=== PATIENT | male | born 1950 | race Caucasian/White ===

== ENCOUNTER 2022-12-31 09:01 | Inpatient (IN) | payer OTHER, MEDICARE, SELFPAY ==
[2022-12-31] VITALS (27 sets, daily range): BP systolic 121–183; BP diastolic 73–102; PULSE 64–93; RESP 14–20; TEMP 36.2–36.8; O2SAT 90–99; BMI 13.9
--- NOTE | 2022-12-31 09:30 | CRLHL7_ITS ---
For Patients: As a result of the Century Cures Act, medical imaging exams and procedure reports are released immediately into your electronic medical record. You may view this report before your referring provider. If you have questions, please contact your health care provider. INDICATION: Diffuse abdominal pain. COMPARISON: CT abdomen and pelvis March 12, 2022; CT chest, abdomen and pelvis March 09, 2022. TECHNIQUE: CT abdomen and pelvis with intravenous contrast; coronal and sagittal reformats. FINDINGS: Distended small bowel with what appears to be mechanical small bowel obstruction somewhere in the distal ileum. Swirling of the mesentery indicating volvulus. No evidence of pneumatosis or pneumoperitoneum. Colon is decompressed. Liver, spleen and pancreas are unremarkable. Gallbladder is unremarkable. No adrenal pathology. Kidneys are unremarkable. No retroperitoneal lymphadenopathy. Normal appendix. Evidence of small amount of abdominal and pelvic ascites. Diverticulosis sigmoid colon without any CT evidence of diverticulitis or abscess. The lung bases are clear. IMPRESSION: 1. Mechanical small bowel obstruction transition zone somewhere in the distal ileum; pattern is highly suggestive of volvulus with a swirling of the mesentery. 2. No pneumoperitoneum or pneumatosis. 3. Small amount of abdominal and pelvic ascites. 4. All these findings are relatively new when compared to the previous study March 2022. Please note that all CT scans at this facility use dose modulation, iterative reconstruction, and/or weight-based dosing when appropriate to reduce radiation dose to as low as reasonably achievable. Dictated by Mami Evans MD @ 12/31/2022 11:35:46 AM (Electronically Signed)
[2022-12-31 09:49] LABS: Lactate* 2.1 mmol/L (0.5-1.9)
--- NOTE | 2022-12-31 09:51 | ED_ITS ---
HPI - Abdominal Pain General Chief Complaint: Abdominal Pain Stated Complaint: food poisoning Time Seen by Provider: 12/31/22 09:30 Source: patient Mode of arrival: ambulatory Limitations: no limitations History of Present Illness HPI narrative: 72-year-old male coming in today complaining of diffuse abdominal pain start in the middle of the night. The pain is constant. Nothing makes it better or worse. Last bowel movement was a small 1 this morning. He states he has not been passing a lot of gas rectally but has been belching quite a lot during the night and morning. He denies fevers or chills. He has had a small episode of vomiting and does feel nauseated. No blood in his vomitus. No blood in his stool. He denies any abdominal surgery in the past. He denies difficulty urinating. He denies increased urgency frequency or dysuria. No blood in his urine. Pain is not localized. Past medical history significant for coronary artery disease status post bypass. Related Data Home Medications Medication Instructions Recorded Confirmed atenolol 50 mg tablet 25 mg PO DAILY 12/31/22 12/31/22 atorvastatin 40 mg tablet 40 mg PO DAILY 12/31/22 12/31/22 clopidogrel 75 mg tablet 75 mg PO QAM 12/31/22 12/31/22 metoprolol tartrate 25 mg tablet 12.5 mg PO BID 12/31/22 12/31/22 nitroglycerin 0.4 mg sublingual mg sublingual 12/31/22 tablet Allergies Allergy/AdvReac Type Severity Reaction Status Date / Time Sulfa (Sulfonamide Allergy Mild Verified 12/31/22 09:18 Antibiotics) Review of Systems Status of ROS Reports: 10 or more systems reviewed and unremarkable except as noted in History and below Exam Narrative: Exam Narrative: Well-nourished well-developed patient who appears uncomfortable. Alert and oriented. Answers questions appropriately. Mood and affect are appropriate. Thoughts are goal oriented and rational. No tangential or magical thinking noted. Patient speaks in full sentences without needing to catch his breath. HEENT: Normocephalic atraumatic. Pupils are equally round reactive to light. Extraocular muscles are intact. Conjunctivae are moist without any icterus noted. Moist mucous membranes. Posterior pharynx is normal. Neck is soft without any lymphadenopathy or thyromegaly. No masses are appreciated. Cardiovascular: Heart is regular rate and rhythm S1 and S2 are present without any murmurs. Lungs: Clear to auscultation bilaterally no wheezes rhonchi or rales are appreciated. Patient takes deep breaths without any discomfort. Abdomen: Slightly firm but nondistended. He has diffuse tenderness throughout the entire abdomen. He has hypoactive bowel sounds. Extremities: Bilateral lower extremities are without edema. Normal DP and PT pulses. Skin: Well perfused without any obvious rashes. Const: Vital Signs, click to edit/add: Vital Signs - 24 hr 12/31/22 09:15 12/31/22 10:10 12/31/22 11:10 Temperature 97.2 F L Pulse Rate 64 Pulse Rate [Right Pulse Oximeter] 72 Respiratory Rate 20 Blood Pressure Blood Pressure [Le ft Upper Arm] 142/96 H Pulse Oximetry 98 98 97 Oxygen Delivery Me thod Room Air 12/31/22 11:28 12/31/22 11:30 12/31/22 11:32 Temperature Pulse Rate 66 74 66 Pulse Rate [Right Pulse Oximeter] Respiratory Rate Blood Pressure 179/100 H 183/102 H Blood Pressure [Le ft Upper Arm] Pulse Oximetry 98 99 97 Oxygen Delivery Me thod 12/31/22 12:00 12/31/22 12:02 Temperature Pulse Rate 68 73 Pulse Rate [Right Pulse Oximeter] Respiratory Rate Blood Pressure 163/94 H Blood Pressure [Le ft Upper Arm] Pulse Oximetry 96 95 Oxygen Delivery Me thod Course Course Hospital Course: IV was established and labs were drawn. Patient received morphine followed by Dilaudid x2 with continued pain. Labs showing elevated white cell count of 14.5 with 91% neutrophils. Electrolytes unremarkable. Lactate slightly elevated at 2.1. Normal CRP. Urinalysis showing 2+ ketones and trace blood. Abdominal CT scan showing a mechanical small bowel obstruction suggestive of volvulus. Dr. Quinones aware of patient. Patient will be taken to the OR for further management. Vital Signs Vital signs: Initial Vital Signs Temperature 97.2 F L 12/31/22 09:15 Temperature Source Temporal Artery Scan 12/31/22 09:15 Pulse Rate 72 12/31/22 09:15 Pulse Rhythm Regular 12/31/22 09:15 Respiratory Rate 20 12/31/22 09:15 Blood Pressure 142/96 H 12/31/22 09:15 Blood Pressure Mean 111 H 12/31/22 09:15 Blood Pressure Position Sitting 12/31/22 09:15 Pulse Oximetry 98 12/31/22 09:15 Oxygen Delivery Method Room Air 12/31/22 09:15 Vital Signs Temperature 97.2 F L 12/31/22 09:15 Pulse Rate 72 12/31/22 09:15 Respiratory Rate 20 12/31/22 09:15 Blood Pressure 142/96 H 12/31/22 09:15 Pulse Oximetry 98 12/31/22 09:15 Oxygen Delivery Method Room Air 12/31/22 09:15 Temperature 97.2 F L 12/31/22 09:15 Pulse Rate 73 12/31/22 12:02 Respiratory Rate 20 12/31/22 09:15 Blood Pressure 163/94 H 12/31/22 12:02 Pulse Oximetry 95 12/31/22 12:02 Oxygen Delivery Method Room Air 12/31/22 09:15 MDM - Abdominal Pain MDM Narrative Medical decision making narrative: Mechanical small-bowel obstruction. Patient to be taken to the OR. Medical Records Attestation: I reviewed the patient's medical records. Lab Data Attestation: I reviewed the patient's lab results. Labs: Lab Results 12/31/22 12/31/22 Range/Units 09:30 11:20 WBC 14.50 H (4.50-11.00) K/uL RBC 6.02 H (4.30-5.90) m/uL Hgb 16.9 (13.5-17.5) gm/dL Hct 52.8 (37.0-53.0) % MCV 88 (80-100) fL MCH 28 (26-34) pg MCHC 32 (32-36) gm/dL RDW Coeff of Johann 13.3 (11.5-15.5) % Plt Count 216 (140-440) K/uL Neut % (Auto) 91.3 H (42.0-72.0) % Lymph % (Auto) 6.4 L (20-44) % [place] % (Auto) 1.9 (0.0-11.0) % Eos % (Auto) 0.0 (0.0-7.0) % Baso % (Auto) 0.2 (0.0-3.0) % Neut # (Auto) 13.20 H (1.7-7.0) K/uL Lymph # (Auto) 0.90 (0.90-2.90) K/uL [place] # (Auto) 0.30 (0.00-0.90) K/UL Eos # (Auto) 0.00 (0.00-0.50) K/uL Baso # (Auto) 0.00 (0.00-0.30) K/uL Abs Immat Gran (auto) 0.00 (0.00-0.30) K/uL Imm/Tot Granulo (auto) 0.2 % ESR < 2 L (2-15) mm/hr Sodium 137 (135-149) mmol/L Potassium 4.2 (3.6-5.1) mmol/L Chloride 102 (96-114) mmol/L Carbon Dioxide 24 (20-32) mmol/L BUN 26 (7-30) mg/dL Creatinine 1.1 (0.5-1.5) mg/dL Estimated Creat Clear 36.74 Estimated GFR 70 ml/min Glucose 167 H (60-115) mg/dL Lactate 2.1 H (0.5-1.9) mmol/L Calcium 9.4 (8.4-10.6) mg/dL Total Bilirubin 1.1 (0.1-1.5) mg/dL Direct Bilirubin 0.1 (0.0-0.5) mg/dL AST 30 (12-35) U/L ALT 37 (4-50) U/L Alkaline Phosphatase 82 (40-150) U/L C-Reactive Protein < 0.5 L (0.5-1.0) mg/dL Total Protein 7.9 (6.0-8.3) g/dL Albumin 4.7 (3.3-5.0) g/dL Lipase 56 (23-300) U/L Urine Color Yellow (Yellow) Urine Appearance Clear (Clear) Urine pH 7.5 (5.0-8.5) Ur Specific [place] 1.015 (1.000-1.030) Urine Protein Negative (Negative) Urine Glucose (UA) Negative (Negative) Urine Ketones 2+ A (Negative) Urine Blood Trace-intact A (Negative) Urine Nitrite Negative (Negative) Urine Bilirubin Negative (Negative) Urine Urobilinogen 0.2 (0.2-1.0) Ur Leukocyte Esterase Negative (Negative) Urine RBC 0-2 (0-2) Urine WBC 0-2 (0-5) Ur Squamous Epith Cells None (None-Few) Urine Bacteria None (None) Imaging Data CT scan - abdomen: Attestation: I have reviewed the pertinent imaging results. Radiologist's impression: COMPARISON: CT abdomen and pelvis March 12, 2022; CT chest, abdomen and pelvis March 09, 2022. TECHNIQUE: CT abdomen and pelvis with intravenous contrast; coronal and sagittal reformats. FINDINGS: Distended small bowel with what appears to be mechanical small bowel obstruction somewhere in the distal ileum. Swirling of the mesentery indicating volvulus. No evidence of pneumatosis or pneumoperitoneum. Colon is decompressed. Liver, spleen and pancreas are unremarkable. Gallbladder is unremarkable. No adrenal pathology. Kidneys are unremarkable. No retroperitoneal lymphadenopathy. Normal appendix. Evidence of small amount of abdominal and pelvic ascites. Diverticulosis sigmoid colon without any CT evidence of diverticulitis or abscess. The lung bases are clear. IMPRESSION: 1. Mechanical small bowel obstruction transition zone somewhere in the distal ileum; pattern is highly suggestive of volvulus with a swirling of the mesentery. 2. No pneumoperitoneum or pneumatosis. 3. Small amount of abdominal and pelvic ascites. 4. All these findings are relatively new when compared to the previous study March 2022. Discharge Plan Discharge Clinical Impression: Small bowel obstruction Patient Disposition: XFER to OR Condition: Unchanged Follow Up/Referrals: Provider,Not a Local [Primary Care Provider] -
[2022-12-31 09:53] LABS: Basophils Percent Auto 0.2 % (0.0-3.0); Hematocrit 52.8 % (37.0-53.0); Hemoglobin* 16.9 gm/dL (13.5-17.5); Immature Granulocytes Pct Auto 0.2 %; Lymphocytes Percent Auto 6.4 % (20-44); Mean Corpuscular HGB Conc 32 gm/dL (32-36); Mean Corpuscular Hemoglobin 28 pg (26-34); Mean Corpuscular Volume 88 fL (80-100); Monocytes Percent Auto 1.9 % (0.0-11.0); Neutrophils Percent Auto 91.3 % (42.0-72.0); Platelet Count* 216 K/uL (140-440); RDW Coefficient of Variation % 13.3 % (11.5-15.5); Red Blood Count 6.02 m/uL (4.30-5.90)
[2022-12-31 09:57] LABS: Slide Review Reflex No
[2022-12-31] MEDS: 0.9 % SODIUM CHLORIDE 1000 ml 1,000 ML IV (10:03)
[2022-12-31 10:04] LABS: Chloride* 102 mmol/L (96-114); Sodium* 137 mmol/L (135-149)
[2022-12-31 10:05] LABS: Potassium* 4.2 mmol/L (3.6-5.1)
[2022-12-31 10:06] LABS: Albumin* 4.7 g/dL (3.3-5.0)
[2022-12-31 10:07] LABS: Creatinine* 1.1 mg/dL (0.5-1.5); Est. Creatinine Clearance* 36.74; Estimated Glomerular Filt Rate 70 ml/min
[2022-12-31 10:08] LABS: Blood Urea Nitrogen* 26 mg/dL (7-30); Calcium* 9.4 mg/dL (8.4-10.6); Carbon Dioxide* 24 mmol/L (20-32); Glucose* 167 mg/dL (60-115)
[2022-12-31 10:09] LABS: Alanine Aminotransferase* 37 U/L (4-50); Alkaline Phosphatase* 82 U/L (40-150); Aspartate Amino Transferase* 30 U/L (12-35); Bilirubin Direct* 0.1 mg/dL (0.0-0.5); Bilirubin Total* 1.1 mg/dL (0.1-1.5); Lipase* 56 U/L (23-300); Total Protein* 7.9 g/dL (6.0-8.3)
[2022-12-31] MEDS: MORPHINE 2 MG/ML inj IVP ×2 (10:09→12:05)
[2022-12-31 10:11] LABS: C Reactive Protein* < 0.5 mg/dL (0.5-1.0)
[2022-12-31] MEDS: ONDANSETRON 2 MG/ML inj 4 MG IVP (10:24)
[2022-12-31 10:33] LABS: Erythrocyte SedimentationRate* < 2 mm/hr (2-15)
[2022-12-31] MEDS: HYDROmorphone 0.5 mg/0.5 ml inj IVP ×2 (10:35→11:55)
[2022-12-31 11:32] LABS: Appearance Urine Clear (Clear); Bilirubin Urine Negative (Negative); Blood Urine Trace-intact (Negative); Color Urine Yellow (Yellow); Glucose Urine Negative (Negative); Ketones Urine 2+ (Negative); Leukocyte Esterase Urine Negative (Negative); Nitrite Urine Negative (Negative); Protein Urine Negative (Negative); Specific Gravity Urine 1.015 (1.000-1.030); Urobilinogen Urine 0.2 (0.2-1.0); pH Urine 7.5 (5.0-8.5)
[2022-12-31 11:50] LABS: RBC Urine 0-2 (0-2); WBC Urine 0-2 (0-5)
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
[2022-12-31] MEDS: LACTATED RINGERS 1000 ML 1,000 ML 100 ML IV ×4 (12:53→23:39)
[2022-12-31] MEDS: PIPERACILLIN/TAZOBACTAM 3.375 GM INJ IVPB (12:55)
--- NOTE | 2022-12-31 13:03 | W.PM.NB ---
Nerve Block Nerve Block Time Seen by Provider: 13:00 Date Seen: 12/31/22 Type of block requested by surgeon for post-operative analgesia: TAP Side: bilateral Time out performed: Yes Verification of patient name: Yes Verification of date of : Yes Site marking: site marked Name of person performing procedure: George Continuous monitoring Was continuous monitoring of O2 sat, B/P, cardiac specialist, recorded every 15 minutes?: Yes Procedure Checklist: sterile prep, needles and gloves Ultrasound guided. Images saved: Yes Medications given in 5ml increments after negative aspiration: Marcaine %: 0.25 mL: 30 Needle gauge: 20 and Exparel mL: 10 Patient tolerated procedure well: Yes Additional comments: Needle noted adjacent to nerve Block Charges Block Charge (with Pro Fee): TAP Bilateral Use of Ultrasound Machine for Block: Yes- US Guidance/pain block
--- NOTE | 2022-12-31 13:03 | PM.IMHP1 ---
Hospitalist- H&P: HPI History of Present Illness Date Seen: 12/31/22 Chief complaint: food poisoning Narrative: Darius Sharp is a 72 year old male admitted through the emergency department with onset of abdominal pain during the night last night. Patient reports he was feeling fine but woke during the night with abdominal pain. He then had vomiting as well. His bowels have been working normally but he just had a very small bowel movement this morning. He has not had any blood in his emesis or blood in his stool. No previous abdominal surgery. Previous bowel obstruction. He does have a history of adenomatous colon polyps and has had colonoscopy as recently as 2 years ago with a recommended repeat colonoscopy in 7 years. In the emergency department CT scan obtained did show small-bowel obstruction with transition point and concern about internal hernia. He is seen in consultation with General surgery with a plan to go to the operating room for exploratory laparotomy. Patient has significant history for cardiac disease. 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 He collapsed suddenly while bicycling with friends and CPR was initiated immediately. He was found to be in ventricular fibrillation and shocked x1. Coronary angiogram showed minimal disease in the LM, severe proximal LAD disease with severe in-stent restenosis after the proximal D2 branch, diffuse moderate in-stent restenosis with a subtotal severe lesion in the proximal LCx, felt to be the culprit lesion, and a severe proximal lesion in the RCA. He underwent emergent PTCA to the prox LCx lesion, followed by CABG x 4 (PIERCE to LAD, SVG to distal RCA, SVG to OM, and SVG to diagonal) on 03/22/2022. ?Overall, his recovery was uneventful and he was discharged to home on 03/27/2022. ? ? The patient was readmitted from 03/30- after ECG at PCP clinic visit showed sinus tachycardia (asymptomatic). ?He was evaluated further to rule out hemorrhage, tamponade, sepsis, pulmonary embolism, etc. ?Chest CT was negative for PE, LVEF was normal and minimal pericardial effusion noted on echocardiogram and no concern for pericarditis. Lab work was reassuring. The decision was made to initiate Metoprolol 12.5 mg PO BID. Darius has done well with that. Per home monitoring, his HR is averaging 65 bpm, BP 124/79 mmHg, and weight 158 lbs. ? The patient diligently follows a heart healthy nutrition plan, noting that his is a vegetarian. He completed Cardiac Rehab in May 2022 and has gone back to his prior exercise routine. He plays competitive table tennis 3-4 x/week and rides his stationary bike 30-45 minutes most of the other days. He tolerates exercise and exertional activities without cardiac sx or limitations. Patient reports that since June he has continued to feel well. He has no unusual dyspnea with exertion or chest pain. He is on aspirin and clopidogrel. No other anticoagulation. He has had no problems with anesthesia, bleeding or thrombophilia. Review of Systems Narrative: Prior to last night he was feeling well. 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 He does not smoke. He drinks alcohol 1-2 times per week. No recreational drug use. He lives with his . He is very active. Healthcare power of senior trial attorney is his or his son Chano. Code status is full Smoking Status: Current some day smoker Meds Home Medications and Allergies Home Medications Medication Instructions Recorded Confirmed Type atorvastatin 40 mg tablet 40 mg PO DAILY 12/31/22 12/31/22 History clopidogrel 75 mg tablet 75 mg PO QAM 12/31/22 12/31/22 History metoprolol tartrate 25 mg tablet 12.5 mg PO BID 12/31/22 12/31/22 History nitroglycerin 0.4 mg sublingual mg sublingual 12/31/22 History tablet Allergies Allergy/AdvReac Type Severity Reaction Status Date / Time Sulfa (Sulfonamide Allergy Mild Verified 12/31/22 09:18 Antibiotics) Exam Narrative: Exam Narrative: He is alert and appears in moderate amount of discomfort. He describes this is abdominal pain and he is having a hard time getting comfortable. He feels an urge to void or to have a bowel movement but is unable to. Eyes normal. Oropharynx normal. Neck is supple without mass or adenopathy. Respirations are clear to auscultation. Cardiovascular: S1, S2, regular rate and rhythm. No murmur gallop or rub. Abdomen: Bowel sounds active. Abdomen is distended with diffuse tenderness most prominent in the lower abdomen just to the left of midline. External genitalia normal. Extremities normal with intact pulses and sensation. No edema. Const: Vital Signs, click to edit/add: Vital Signs - 24 hr 12/31/22 09:15 12/31/22 10:10 12/31/22 11:10 Temperature 97.2 F L Pulse Rate 64 Pulse Rate [Right Pulse Oximeter] 72 Respiratory Rate 20 Blood Pressure Blood Pressure [Le ft Upper Arm] 142/96 H Pulse Oximetry 98 98 97 Oxygen Delivery Me thod Room Air 12/31/22 11:28 12/31/22 11:30 12/31/22 11:32 Temperature Pulse Rate 66 74 66 Pulse Rate [Right Pulse Oximeter] Respiratory Rate Blood Pressure 179/100 H 183/102 H Blood Pressure [Le ft Upper Arm] Pulse Oximetry 98 99 97 Oxygen Delivery Me thod 12/31/22 12:00 12/31/22 12:02 Temperature Pulse Rate 68 73 Pulse Rate [Right Pulse Oximeter] Respiratory Rate Blood Pressure 163/94 H Blood Pressure [Le ft Upper Arm] Pulse Oximetry 96 95 Oxygen Delivery Me thod Documenting provider has reviewed patient's vital signs: yes Hospitalist - H&P: Result Labs Labs: Short CBC 12/31/22 Range/Units 09:30 WBC 14.50 H (4.50-11.00) K/uL Hgb 16.9 (13.5-17.5) gm/dL Hct 52.8 (37.0-53.0) % Plt Count 216 (140-440) K/uL BMP 12/31/22 09:30 Sodium 137 Potassium 4.2 Chloride 102 Carbon Dioxide 24 BUN 26 Creatinine 1.1 Glucose 167 H Calcium 9.4 Liver Function 12/31/22 Range/Units 09:30 Total Bilirubin 1.1 (0.1-1.5) mg/dL Direct Bilirubin 0.1 (0.0-0.5) mg/dL AST 30 (12-35) U/L ALT 37 (4-50) U/L Alkaline Phosphatase 82 (40-150) U/L Albumin 4.7 (3.3-5.0) g/dL Urine 12/31/22 Range/Units 11:20 Urine Color Yellow (Yellow) Urine Appearance Clear (Clear) Urine pH 7.5 (5.0-8.5) Ur Specific [place] 1.015 (1.000-1.030) Urine Protein Negative (Negative) Urine Glucose (UA) Negative (Negative) Imaging CT scan - abdomen: Radiologist's impression: INDICATION: Diffuse abdominal pain. COMPARISON: CT abdomen and pelvis March 12, 2022; CT chest, abdomen and pelvis March 09, 2022. TECHNIQUE: CT abdomen and pelvis with intravenous contrast; coronal and sagittal reformats. FINDINGS: Distended small bowel with what appears to be mechanical small bowel obstruction somewhere in the distal ileum. Swirling of the mesentery indicating volvulus. No evidence of pneumatosis or pneumoperitoneum. Colon is decompressed. Liver, spleen and pancreas are unremarkable. Gallbladder is unremarkable. No adrenal pathology. Kidneys are unremarkable. No retroperitoneal lymphadenopathy. Normal appendix. Evidence of small amount of abdominal and pelvic ascites. Diverticulosis sigmoid colon without any CT evidence of diverticulitis or abscess. The lung bases are clear. IMPRESSION: 1. Mechanical small bowel obstruction transition zone somewhere in the distal ileum; pattern is highly suggestive of volvulus with a swirling of the mesentery. 2. No pneumoperitoneum or pneumatosis. 3. Small amount of abdominal and pelvic ascites. 4. All these findings are relatively new when compared to the previous study March 2022. Assessment and Plan Assessment and plan (1) Small bowel obstruction: Problem comment: Urgent surgery Status: Acute (2) Coronary artery disease: Problem comment: Four vessel CABG following cardiac arrest in March 2022. Asymptomatic heart disease since cardiac arrest Status: Acute (3) Antiplatelet or antithrombotic long-term use: Status: Acute (4) Stage 3 chronic kidney disease: Status: Acute Plan Patient is admitted for urgent surgery. Follow-up after surgery to monitor for medical complications, particularly cardiovascular disease. Total time spent today is 75 minutes, 45 minutes in coordination of care discussing with patient , patient's and other providers ongoing plan of care for surgery and recovery
--- NOTE | 2022-12-31 14:51 | W.ANESCHARGE ---
Anesthesia Charges Start Date/Time Anesthesia Start Date: 12/31/22 Anesthesia Start Time: 12:53 Stop Date/Time Anesthesia Stop Date: 12/31/22 Anesthesia Stop Time: 14:40 Summary Emergency: MDA Extremes of Age - Over 70 or under 1: ELECTROPHYSIOLOGIST
--- NOTE | 2022-12-31 15:22 | P.GSOP_ITS ---
Operative Note Pre-op diagnosis: Small bowel obstruction with concern for internal hernia or volvulus Post-op diagnosis: Same Type of Procedure: Exploratory laparotomy and lysis of adhesions Indications: The patient is a 72-year-old male who presented to the emergency department with approximately 12 hours of severe abdominal pain. Workup revealed elevated white blood cell count and lactate. CT scan showed a small-bowel obstruction with concern for mesenteric volvulus versus internal hernia. I recommended exploratory laparotomy for risk of bowel ischemia and the patient agreed to p roceed. Procedure Description: After discussing the risks and benefits of the procedure, the patient signed informed consent.? The operative site was marked and the patient was brought to the operating room and placed on the operating table in supine position.? Care was taken to pad the patient's pressure points.?? The patient was then intubated by anesthesia.?? The operative site was then prepped and draped in the usual sterile fashion.? A time-out was then performed. In midline incision was made in the mid abdomen around the umbilicus. Disse ction was taken down into the subcutaneous tissue using cautery. The fascia was then incised and peritoneum entered. There was a moderate amount of clear fluid noted in the abdomen. This was suctioned. I began running the small bowel from the ligament Tre[place] distal. Approximately 100 cm distal, there was an abrupt change in the small bowel. The small bowel and its mesentery appeared hemorrha gic. This continued 70 cm or so. There was an area on the small bowel where was obvious that there had been it adhesion that had caused the small bowel to obstruct, however this had freed itself while running the bowel. This appeared to be an interloop adhesion. There was a jelly like substance noted here which appeared to be more consistent with fibrinous material, I did send this for pathology given that the patient had no prior history of surgery. The remainder of the small bowel was normal. No masses were palpable within the small bowel. I then returned the small bowel to the abdomen to allow it time to ensure adequate perfusion. In the meantime I suctioned out several 100 mL of ascites. I then examined the peritoneum visually as well as with my hand and did not discover any peritoneal studding. The liver was palpated and felt normal. No masses were felt in the abdomen. I re-examined the bowel which had been twisted/strangulated. There were no frankly ischemic areas, however this area of bowel was quite reddened and hemorrhagic, likely from reperfusion. I obtained a Doppler and examined this area of the bowel along the mesenteric border. It had excellent blood flow. I allowed the bowel to sit in the abdomen for approximately 10 more minutes and examined it 1 more time to ensure that continued to appear well perfused. The bowel was then replaced in the abdomen in its appropriate orientation. The fascia was then closed with looped 0 [place] in a running fashion. There was no spillage of bowel contents, however I did irrigate the subcutaneous space before closing. The skin was then closed with 3 0 Vicryl dermal and 4-0 Monocryl running subcuticular suture. Sterile dressings were applied. The patient had silk suture noted which was protruding from his skin at the site of his prior chest tube. Using a pickups, I was able to remove this. ? The patient was then woken and transported to the recovery area in stable condition. ? The patient tolerated the procedure well. Findings: 1. Likely internal hernia with volvulus and strangulation of the distal jejunum. 2. Bowel appeared perfused though hemorrhagic. Excellent Doppler signal along mesenteric border of the entire area of affected bowel. 3. Small amount of jelly-like substance noted in the area of the adhesion. This was sent to pathology. Anesthesia: GETA Surgeon: Yessica Quinones MD Estimated blood loss (mL): 10 Additional Specimen Information: Peritoneal tissue pathology Condition: stable Disposition: PACU
[2022-12-31] MEDS: METOPROLOL TARTRATE 25 MG TABLET 12.5 MG PO (20:09)
[2023-01-01] VITALS (7 sets, daily range): BP systolic 109–162; BP diastolic 63–91; PULSE 64–86; RESP 16–18; TEMP 36.6–37.3; O2SAT 95–97
--- NOTE | 2023-01-01 06:23 | PC.NURSE ---
-: pleasant and cooperative. SBA to BR to assist with IV pole. Compliant with NPO diet. Pt states pain is tolerable, declines need for pain medication. Bowel tones hypoactive. VSS. Dressing to abd CDI. ?
[2023-01-01 08:04] LABS: Basophils Percent Auto 0.1 % (0.0-3.0); Hematocrit 45.8 % (37.0-53.0); Hemoglobin* 14.7 gm/dL (13.5-17.5); Immature Granulocytes Pct Auto 0.1 %; Lymphocytes Percent Auto 7.7 % (20-44); Mean Corpuscular HGB Conc 32 gm/dL (32-36); Mean Corpuscular Hemoglobin 28 pg (26-34); Mean Corpuscular Volume 87 fL (80-100); Neutrophils Percent Auto 85.1 % (42.0-72.0); Platelet Count* 193 K/uL (140-440); RDW Coefficient of Variation % 13.9 % (11.5-15.5); Red Blood Count 5.24 m/uL (4.30-5.90); White Blood Count* 11.29 K/uL (4.50-11.00)
[2023-01-01 08:12] LABS: Slide Review Reflex No
[2023-01-01 08:37] LABS: Chloride* 106 mmol/L (96-114); Potassium* 4.6 mmol/L (3.6-5.1); Sodium* 136 mmol/L (135-149)
[2023-01-01 08:40] LABS: Blood Urea Nitrogen* 31 mg/dL (7-30); Carbon Dioxide* 25 mmol/L (20-32); Creatinine* 1.2 mg/dL (0.5-1.5); Est. Creatinine Clearance* 33.68; Estimated Glomerular Filt Rate 63 ml/min
[2023-01-01 08:41] LABS: Calcium* 8.2 mg/dL (8.4-10.6); Glucose* 106 mg/dL (60-115)
[2023-01-01] MEDS: LACTATED RINGERS 1000 ML 1,000 ML 100 ML IV ×2 (08:41→19:05)
[2023-01-01] MEDS: CLOPIDOGREL 75 MG TABLET PO (09:02)
[2023-01-01] MEDS: METOPROLOL TARTRATE 25 MG TABLET 12.5 MG PO ×2 (09:02→21:00)
--- NOTE | 2023-01-01 11:22 | PM.GSPN ---
Subjective Subjective Date Seen: 01/01/23 Interval history: Feeling significantly better today than preoperatively. He has been up walking. Has some pain with movement. Minimal to no pain at rest. Denies nausea. No flatus. Exam Narrative: Exam Narrative: General: No acute distress CV: Regular rate and rhythm Respiratory: Clear to auscultation bilaterally Abdomen: Mild distention. Dressing clean and dry. Minimally tender to palpation; appropriate for postop state Const: Vital Signs, click to edit/add: Vital Signs - 24 hr 12/31/22 11:28 12/31/22 11:30 12/31/22 11:32 Temperature Pulse Rate 66 74 66 Pulse Rate [Left P ulse Oximeter] Respiratory Rate Blood Pressure 179/100 H 183/102 H Blood Pressure [Le ft Arm] Pulse Oximetry 98 99 97 Oxygen Delivery Me thod 12/31/22 12:00 12/31/22 12:02 12/31/22 14:40 Temperature 97.1 F L Pulse Rate 68 73 89 Pulse Rate [Left P ulse Oximeter] Respiratory Rate 16 Blood Pressure 163/94 H 131/86 Blood Pressure [Le ft Arm] Pulse Oximetry 96 95 95 Oxygen Delivery Me od Room Air 12/31/22 14:45 12/31/22 14:50 12/31/22 14:55 Temperature Pulse Rate 93 90 82 Pulse Rate [Left P ulse Oximeter] Respiratory Rate 16 16 16 Blood Pressure 138/86 148/91 H 151/99 H Blood Pressure [Le ft Arm] Pulse Oximetry 95 95 94 [facility] Air Room Air Room Air 12/31/22 15:00 12/31/22 15:05 12/31/22 15:10 Temperature 97.5 F L Pulse Rate 86 75 85 Pulse Rate [Left P ulse Oximeter] Respiratory Rate 14 14 14 Blood Pressure 136/87 143/90 H 146/98 H Blood Pressure [Le ft Arm] Pulse Oximetry 94 94 95 Oxygen Delivery Me od Room Air Room Air Room Air 12/31/22 15:30 12/31/22 15:30 12/31/22 15:45 Temperature 97.5 F L 97.5 F L 97.4 F L Pulse Rate 77 Pulse Rate [Left P ulse Oximeter] 77 80 Respiratory Rate 14 14 14 Blood Pressure Blood Pressure [Le ft Arm] 121/80 123/75 Pulse Oximetry 95 90 Oxygen Delivery Me thod Room Air Room Air Room Air 12/31/22 15:45 12/31/22 16:00 12/31/22 16:15 Temperature 97.4 F L 97.4 F L 97.3 F L Pulse Rate Pulse Rate [Left P ulse Oximeter] 80 69 81 Respiratory Rate 14 14 14 Blood Pressure Blood Pressure [Le ft Arm] 123/75 130/80 129/84 Pulse Oximetry 90 90 90 Oxygen Delivery Me thod Room Air Room Air Room Air 12/31/22 16:30 12/31/22 17:00 12/31/22 17:30 Temperature 98.1 F 98.1 F 98.2 F Pulse Rate Pulse Rate [Left P ulse Oximeter] 87 86 76 Respiratory Rate 14 14 14 Blood Pressure Blood Pressure [Le ft Arm] 128/95 H 133/86 121/73 Pulse Oximetry 90 90 95 Oxygen Delivery Me thod Room Air Room Air Room Air 12/31/22 18:30 12/31/22 19:00 12/31/22 20:00 Temperature 98.2 F 97.8 F Pulse Rate Pulse Rate [Left P ulse Oximeter] 78 87 83 Respiratory Rate 14 16 16 Blood Pressure Blood Pressure [Le ft Arm] 134/79 131/78 136/93 H Pulse Oximetry 90 93 92 Oxygen Delivery Me thod Room Air Room Air Room Air 12/31/22 21:44 12/31/22 22:23 12/31/22 22:23 Temperature 98 F Pulse Rate 89 Pulse Rate [Left P ulse Oximeter] 80 80 Respiratory Rate 16 16 Blood Pressure Blood Pressure [Le ft Arm] 133/78 Pulse Oximetry 95 Oxygen Delivery Me thod Room Air 01/01/23 03:00 01/01/23 07:00 01/01/23 07:00 Temperature 98.4 F 99.2 F Pulse Rate 64 Pulse Rate [Left P ulse Oximeter] 68 77 Respiratory Rate 16 16 Blood Pressure Blood Pressure [Le ft Arm] 109/63 124/67 Pulse Oximetry 96 95 Oxygen Delivery Me thod Room Air Room Air 01/01/23 07:00 Temperature Pulse Rate Pulse Rate [Left P ulse Oximeter] Respiratory Rate 16 Blood Pressure Blood Pressure [Le ft Arm] Pulse Oximetry Oxygen Delivery Me thod Labs/Imaging Labs Labs: Hemoglobin 14 White blood cell count 11 from 14 Electrolytes within normal limits though BUN is up slightly to 31 from 23/11. Progress Note: A&P Assessment and plan (1) Coronary artery disease: Problem details: Four vessel CABG following cardiac arrest in March 2022. Asymptomatic heart disease since cardiac arrest Status: Acute (2) Stage 3 chronic kidney disease: Status: Acute (3) Antiplatelet or antithrombotic long-term use: Status: Acute (4) Volvulus: Status: Acute (5) S/P laparotomy with lysis of adhesions: Status: Acute Plan The patient is a 72-year-old male who is postop day 1 status post exploratory laparotomy and lysis of adhesions for small-bowel volvulus. Bowel appeared perfused though hemorrhagic in the OR. No ischemic areas noted. -patient is doing well overall however I expect a significant ileus. Sips with meds and lozenges/swabs only until passing flatus. -patient with robust urine output per report though BUN is up slightly. Will keep maintenance IV fluids at their current level unless urine output decreases. Recheck BUN tomorrow; patient may be 3rd spacing -discussed Lovenox prophylaxis. Patient is ambulating and wearing his SCDs at night. He is also on anticoagulation with Plavix and aspirin. I think adding heparin will likely increased bleeding risk. Will hold off on this point and follow hemoglobin for now. -no need for ongoing antibiotics. Encourage ambulation and IS.
--- NOTE | 2023-01-01 12:56 | PM.IMPN1 ---
Progress Note: A&P Assessment and plan (1) S/P laparotomy with lysis of adhesions: Problem details: Dr. Quinones, 01/01/2023. Postoperatively doing well Status: Acute (2) Coronary artery disease: Problem details: Four vessel CABG following cardiac arrest in March 2022. Asymptomatic heart disease since cardiac arrest Status: Acute (3) Stage 3 chronic kidney disease: Problem details: Stable Status: Acute (4) Antiplatelet or antithrombotic long-term use: Problem details: Resume antiplatelet therapy Status: Acute Plan Continue in hospital for postoperative management, awaiting return of bowel function, monitoring for complications of surgery or cardiovascular disease. Time Spent With Patient Total time spent: Total time spent today is 35 minutes, 25 minutes in coordination of care discussing with patient other providers ongoing evaluation management of postop small-bowel obstruction and lysis of adhesions Subjective Date Seen: 01/01/23 Interval history: 72-year-old male seen in followup of hospitalization for small-bowel obstruction. He was taken to the OR where he was found to have a probable internal hernia. This resolved without requiring small-bowel resection. There was some concern about ischemic bowel but Dr. Quinones felt the bowel was well perfused. Postoperatively he reports feeling much better. Despite his abdominal incision is pain is much improved. Otherwise reports feeling fine he has been up walking in the hallway. No shortness of breath or chest pain. He is not yet passing gas. Exam Narrative: Exam Narrative: He is alert and appears in no distress. Speech is normal. Eyes normal. Oropharynx normal. Respirations are clear to auscultation. Cardiovascular: S1, S2, regular rate and rhythm. No murmur gallop or rub. Abdomen: Bowel sounds are diminished but present. Abdomen is soft with relatively diffuse tenderness and guarding consistent with his postoperative status. No significant erythema or drainage from the bandaged wound. Extremities without edema. Const: Vital Signs, click to edit/add: Vital Signs - 24 hr 12/31/22 14:40 12/31/22 14:45 12/31/22 14:50 Temperature 97.1 F L Pulse Rate 89 93 90 Pulse Rate [Left P ulse Oximeter] Respiratory Rate 16 16 16 Blood Pressure 131/86 138/86 148/91 H Blood Pressure [Le ft Arm] Pulse Oximetry 95 95 95 Oxygen Delivery Me thod Room Air Room Air Room Air 12/31/22 14:55 12/31/22 15:00 12/31/22 15:05 Temperature Pulse Rate 82 86 75 Pulse Rate [Left P ulse Oximeter] Respiratory Rate 16 14 14 Blood Pressure 151/99 H 136/87 143/90 H Blood Pressure [Le ft Arm] Pulse Oximetry 94 94 94 Oxygen Delivery Me thod Room Air Room Air Room Air 12/31/22 15:10 12/31/22 15:30 12/31/22 15:30 Temperature 97.5 F L 97.5 F L 97.5 F L Pulse Rate 85 77 Pulse Rate [Left P ulse Oximeter] 77 Respiratory Rate 14 14 14 Blood Pressure 146/98 H Blood Pressure [Le ft Arm] 121/80 Pulse Oximetry 95 95 Oxygen Delivery Me thod Room Air Room Air Room Air 12/31/22 15:45 12/31/22 15:45 12/31/22 16:00 Temperature 97.4 F L 97.4 F L 97.4 F L Pulse Rate Pulse Rate [Left P ulse Oximeter] 80 80 69 Respiratory Rate 14 14 14 Blood Pressure Blood Pressure [Le ft Arm] 123/75 123/75 130/80 Pulse Oximetry 90 90 90 Oxygen Delivery Me thod Room Air Room Air Room Air 12/31/22 16:15 12/31/22 16:30 12/31/22 17:00 Temperature 97.3 F L 98.1 F 98.1 F Pulse Rate Pulse Rate [Left P ulse Oximeter] 81 87 86 Respiratory Rate 14 14 14 Blood Pressure Blood Pressure [Le ft Arm] 129/84 128/95 H 133/86 Pulse Oximetry 90 90 90 Oxygen Delivery Me od Room Air Room Air Room Air 12/31/22 17:30 12/31/22 18:30 12/31/22 19:00 Temperature 98.2 F 98.2 F 97.8 F Pulse Rate Pulse Rate [Left P ulse Oximeter] 76 78 87 Respiratory Rate 14 14 16 Blood Pressure Blood Pressure [Le ft Arm] 121/73 134/79 131/78 Pulse Oximetry 95 90 93 Oxygen Delivery Me thod Room Air Room Air Room Air 12/31/22 20:00 12/31/22 21:44 12/31/22 22:23 Temperature 98 F Pulse Rate 89 Pulse Rate [Left P ulse Oximeter] 83 80 Respiratory Rate 16 16 Blood Pressure Blood Pressure [Le ft Arm] 136/93 H 133/78 Pulse Oximetry 92 95 Oxygen Delivery Me thod Room Air Room Air 12/31/22 22:23 01/01/23 03:00 01/01/23 07:00 Temperature 98.4 F 99.2 F Pulse Rate Pulse Rate [Left P ulse Oximeter] 80 68 77 Respiratory Rate 16 16 16 Blood Pressure Blood Pressure [Le ft Arm] 109/63 124/67 Pulse Oximetry 96 95 Oxygen Delivery Me thod Room Air Room Air 01/01/23 07:00 01/01/23 07:00 01/01/23 11:00 Temperature 98.1 F Pulse Rate 64 Pulse Rate [Left P ulse Oximeter] 70 Respiratory Rate 16 16 Blood Pressure Blood Pressure [Le ft Arm] 125/77 Pulse Oximetry 97 Oxygen Delivery Me thod Room Air Documenting provider has reviewed patient's vital signs: yes Labs Labs: Laboratory Results - last 24 hr 12/31/22 01/01/23 12:50 07:55 WBC 11.29 H RBC 5.24 Hgb 14.7 Hct 45.8 MCV 87 MCH 28 MCHC 32 RDW Coeff of Johann 13.9 Plt Count 193 Neut % (Auto) 85.1 H Lymph % (Auto) 7.7 L [place] % (Auto) 7.0 Eos % (Auto) 0.0 Baso % (Auto) 0.1 Neut # (Auto) 9.60 H Lymph # (Auto) 0.90 [place] # (Auto) 0.80 Eos # (Auto) 0.00 Baso # (Auto) 0.00 Abs Immat Gran (auto) 0.00 Imm/Tot Granulo (auto) 0.1 Sodium 136 Potassium 4.6 Chloride 106 Carbon Dioxide 25 BUN 31 H Creatinine 1.2 Estimated Creat Clear 33.68 Estimated GFR 63 Glucose 106 Calcium 8.2 L Blood Type A Negative Antibody Screen NEGATIVE
--- NOTE | 2023-01-01 18:50 | W.PM.CROSSCO ---
Subjective Subjective Time Seen by Provider: 19:00 Date Seen: 01/01/23 Interval history: Urinary frequency throughout the day, every 20-40 minutes. Post-void residual 200+ ml. H/O urinary retention x > 3 months post cardiac arrest and surgeries. Initially straight cath'd, but then Darby placed for about 3 months. Was on tamsulosin and finasteride for a few months and then these was discontinued. Currently NPO except for sips of H2O and ice chips. Receiving IVF at 100 ml/hr. Objective Objective Data Details: Anxious. Apears comfortable, in no acute distress. Alert, oriented x 4. Independent in transfer, station, gait. Abdomen benign. No edema. Assessment and Plan Assessment and plan (1) Urinary retention: Status: Acute Plan 1. Continue NPO status and IVF at 100 ml/hr 2. Will restart tamsulosin 0.4 mg daily 3. Straight cath PRN 4. Check PSA 5. Will need outpatient urology consultation
[2023-01-01] MEDS: TAMSULOSIN HCL 0.4 MG CAPSULE PO (19:38)
[2023-01-01] MEDS: LACTATED RINGERS 1000 ML 1,000 ML 75 ML IV (19:38)
[2023-01-01] MEDS: ATORVASTATIN CALCIUM 40 MG TABLET PO (21:00)
[2023-01-02] VITALS (9 sets, daily range): BP systolic 144–158; BP diastolic 85–100; PULSE 71–97; RESP 16–18; TEMP 36.6–37.2; O2SAT 95–97
[2023-01-02 06:26] LABS: Basophils Absolute Auto 0.01 K/uL (0.00-0.30); Basophils Percent Auto 0.1 % (0.0-3.0); Eosinophils Absolute Auto 0.02 K/uL (0.00-0.50); Eosinophils Percent Auto 0.2 % (0.0-7.0); Hematocrit 43.7 % (37.0-53.0); Hemoglobin* 14.2 gm/dL (13.5-17.5); Immature Granulocytes Abs Auto 0.02 K/uL (0.00-0.30); Immature Granulocytes Pct Auto 0.2 %; Lymphocytes Percent Auto 10.2 % (20-44); Mean Corpuscular HGB Conc 33 gm/dL (32-36); Mean Corpuscular Hemoglobin 28 pg (26-34); Mean Corpuscular Volume 87 fL (80-100); Monocytes Percent Auto 7.1 % (0.0-11.0); Neutrophils Percent Auto 82.2 % (42.0-72.0); Platelet Count* 177 K/uL (140-440); RDW Coefficient of Variation % 13.8 % (11.5-15.5); Red Blood Count 5.04 m/uL (4.30-5.90); White Blood Count* 9.04 K/uL (4.50-11.00)
[2023-01-02 06:27] LABS: Slide Review Reflex No
--- NOTE | 2023-01-02 06:36 | PC.NURSE ---
: indep. Pt c/o frequent urination- stated up every 20mins, flomax given x 1, straight cath for 225mL out, offered relief ? pt stated this am that he was still up to the BR every hour, however he was urinating more with each void, pt stated ?i think the flomax is helping?. Post void bladder scan at 0630 was 20-40mL. VSS. States abd pain is tolerable, declines need for medication. Pt not passing gas, bowel tones hypoactive. Dressing CDI, dried drainage circled on dressing. ?
[2023-01-02 06:37] LABS: Chloride* 103 mmol/L (96-114)
[2023-01-02 06:38] LABS: Potassium* 4.2 mmol/L (3.6-5.1); Sodium* 135 mmol/L (135-149)
[2023-01-02 06:40] LABS: Creatinine* 1.1 mg/dL (0.5-1.5); Est. Creatinine Clearance* 36.74; Estimated Glomerular Filt Rate 70 ml/min
[2023-01-02 06:41] LABS: Blood Urea Nitrogen* 27 mg/dL (7-30); Calcium* 8.6 mg/dL (8.4-10.6); Carbon Dioxide* 29 mmol/L (20-32); Glucose* 109 mg/dL (60-115)
[2023-01-02] MEDS: LACTATED RINGERS 1000 ML 1,000 ML 75 ML IV ×2 (07:58→21:06)
[2023-01-02] MEDS: CLOPIDOGREL 75 MG TABLET PO (09:23)
[2023-01-02] MEDS: TAMSULOSIN HCL 0.4 MG CAPSULE PO (09:23)
[2023-01-02] MEDS: METOPROLOL TARTRATE 25 MG TABLET 12.5 MG PO ×2 (09:23→21:05)
--- NOTE | 2023-01-02 09:56 | PM.GSPN ---
Subjective Subjective Date Seen: 01/02/23 Interval history: Darius is doing well. He states that he felt miserable overnight however this was because he was exhausted and could not sleep well. He had to be straight cathed yesterday for urinary retention. This is reportedly a problem that he has had previously. He was restarted on Flomax. He only has pain if he tries to sit up too quickly. Denies nausea. Does not note any bowel gurgling or flatus. Exam Narrative: Exam Narrative: General: No acute distress CV: Regular rate and rhythm Respiratory: Clear to auscultation bilaterally Abdomen. Minimally distended. Appropriately tender for the postop state. Ecchymosis around surgical incision without erythema. Bowel sounds noted on auscultation. Const: Vital Signs, click to edit/add: Vital Signs - 24 hr 01/01/23 11:00 01/01/23 15:00 01/01/23 15:00 Temperature 98.1 F Pulse Rate 73 Pulse Rate [Left P ulse Oximeter] 70 70 Respiratory Rate 16 16 Blood Pressure [Le ft Arm] 125/77 Pulse Oximetry 97 Oxygen Delivery Me thod Room Air 01/01/23 15:00 01/01/23 19:48 01/01/23 22:13 Temperature 98.7 F 98.1 F 98 F Pulse Rate Pulse Rate [Left P ulse Oximeter] 75 86 81 Respiratory Rate 16 16 18 Blood Pressure [Le ft Arm] 143/83 H 162/91 H 159/89 H Pulse Oximetry 96 96 95 Oxygen Delivery Me thod Room Air Room Air Room Air 01/01/23 22:22 01/01/23 22:22 01/02/23 03:07 Temperature Pulse Rate 64 Pulse Rate [Left P ulse Oximeter] 81 73 Respiratory Rate 18 18 Blood Pressure [Le ft Arm] Pulse Oximetry Oxygen Delivery Me thod Room Air 01/02/23 05:41 Temperature 98.7 F Pulse Rate Pulse Rate [Left P ulse Oximeter] 87 Respiratory Rate 18 Blood Pressure [Le ft Arm] 158/85 H Pulse Oximetry 95 Oxygen Delivery Me thod Room Air Labs/Imaging Labs Labs: White blood cell count down to 9 from 11. BUN and creatinine improved. Remainder of electrolytes within normal limits. Progress Note: A&P Assessment and plan (1) S/P laparotomy with lysis of adhesions: Problem details: Dr. Quinones, 01/01/2023. Postoperatively doing well Status: Acute (2) Urinary retention: Status: Acute (3) Coronary artery disease: Problem details: Four vessel CABG following cardiac arrest in March 2022. Asymptomatic heart disease since cardiac arrest Status: Acute (4) Stage 3 chronic kidney disease: Problem details: Stable Status: Acute (5) Small bowel obstruction: Problem details: Urgent surgery Status: Acute (6) Antiplatelet or antithrombotic long-term use: Problem details: Resume antiplatelet therapy Status: Acute Plan The patient is a 72-year-old male status post exploratory laparotomy, postop day 2, for volvulus with bowel strangulation. -awaiting return of bowel function. Given the amount of bowel edema and the affected loop, I expect possible prolonged ileus. Sips with meds and lozenges only. Okay to advance diet to clears once he starts passing flatus -continue to monitor urine output. Elevated yesterday hopefully secondary to mobilization of fluids. Straight cath as needed for urinary retention. -holding Lovenox for DVT prophylaxis as the patient is on dual anti-platelet therapy and is ambulatory -encourage IS.
--- NOTE | 2023-01-02 15:20 | PM.IMPN1 ---
Progress Note: A&P Assessment and plan (1) S/P laparotomy with lysis of adhesions: Problem details: Dr. Quinones, 01/01/2023. Postoperatively doing well Status: Acute (2) Urinary retention: Problem details: Straight cath p.r.n.. Initiate Flomax. Discussed natural history of what is likely BPH Status: Acute (3) Coronary artery disease: Problem details: Four vessel CABG following cardiac arrest in March 2022. Asymptomatic heart disease since cardiac arrest Status: Acute (4) Stage 3 chronic kidney disease: Problem details: Stable Status: Acute (5) Small bowel obstruction: Problem details: Exploratory laparotomy with Dr. Quinones. Anticipate postoperative ileus Status: Acute (6) Antiplatelet or antithrombotic long-term use: Problem details: Resume antiplatelet therapy Status: Acute Plan Continue in hospital pending return of antegrade bowel function. Management of urinary retention as needed. Monitor for cardiac complications. Time Spent With Patient Total time spent: Total time spent today is 25 minutes, 15 minutes in coordination of care and discussing with patient other providers management of urinary outlet obstruction and postoperative complications Subjective Date Seen: 01/02/23 Interval history: Postop day 2 exploratory laparotomy and lysis of adhesions. Doing well except for urinary retention and urinary urgency last night. Urinary frequency throughout the day, every 20-40 minutes. Post-void residual 200+ ml. H/O urinary retention x > 3 months post cardiac arrest and surgeries. Initially straight cath'd, but then Darby placed for about 3 months. Was on tamsulosin and finasteride for a few months and then these was discontinued. Currently NPO except for sips of H2O and ice chips. Receiving IVF at 100 ml/hr. This morning better able to empty his bladder. Abdominal pain is better. He is ambulating in the chang. No other concerns Exam Narrative: Exam Narrative: He is alert and appears in no distress. Respirations are clear to auscultation. Cardiovascular: S1, S2, regular rhythm. Abdomen is soft with mild diffuse tenderness most prominent in the midline. Darby catheter is out. No edema in his extremities. Const: Vital Signs, click to edit/add: Vital Signs - 24 hr 01/01/23 19:48 01/01/23 22:13 01/01/23 22:22 Temperature 98.1 F 98 F Pulse Rate 64 Pulse Rate [Left P ulse Oximeter] 86 81 Respiratory Rate 16 18 Blood Pressure [Le ft Arm] 162/91 H 159/89 H Pulse Oximetry 96 95 Oxygen Delivery Me thod Room Air Room Air 01/01/23 22:22 01/02/23 03:07 01/02/23 05:41 Temperature 98.7 F Pulse Rate Pulse Rate [Left P ulse Oximeter] 81 73 87 Respiratory Rate 18 18 18 Blood Pressure [Le ft Arm] 158/85 H Pulse Oximetry 95 Oxygen Delivery Me thod Room Air Room Air 01/02/23 08:00 01/02/23 08:00 01/02/23 08:00 Temperature 98.4 F Pulse Rate 71 Pulse Rate [Left P ulse Oximeter] 76 76 Respiratory Rate 18 16 Blood Pressure [Le ft Arm] 145/87 H Pulse Oximetry 96 Oxygen Delivery Me thod Room Air 01/02/23 11:15 Temperature 97.9 F Pulse Rate Pulse Rate [Left P ulse Oximeter] 97 Respiratory Rate 16 Blood Pressure [Le ft Arm] 158/100 H Pulse Oximetry 97 Oxygen Delivery Me thod Room Air Documenting provider has reviewed patient's vital signs: yes Labs Labs: Laboratory Results - last 24 hr 01/01/23 01/02/23 07:55 06:05 WBC 9.04 RBC 5.04 Hgb 14.2 Hct 43.7 MCV 87 MCH 28 MCHC 33 RDW Coeff of Johann 13.8 Plt Count 177 Neut % (Auto) 82.2 H Lymph % (Auto) 10.2 L [place] % (Auto) 7.1 Eos % (Auto) 0.2 Baso % (Auto) 0.1 Neut # (Auto) 7.40 H Lymph # (Auto) 0.90 [place] # (Auto) 0.60 Eos # (Auto) 0.02 Baso # (Auto) 0.01 Abs Immat Gran (auto) 0.02 Imm/Tot Granulo (auto) 0.2 Sodium 135 Potassium 4.2 Chloride 103 Carbon Dioxide 29 BUN 27 Creatinine 1.1 Estimated Creat Clear 36.74 Estimated GFR 70 Glucose 109 Calcium 8.6 PSA Screen 14.40 H Lab Acknowledgement Test Added
--- NOTE | 2023-01-02 15:41 | PC.NURSE ---
End of shift nursing note, care provided from [id number]: Pt alert and oriented, vitals stable continued elevated BP, scheduled BP meds admin, sips w/ meds, pt tolerating. Otherwise NPO, pt con't on LR at 75ml/hr. Pt voiding ind, adequate output. Pt states 2/10 discomfort to abd, pt declines offer for PRN med. Pt up to ambulate a few times in hallway. Still awaiting flatulence. Per once pt passes gas pt can be advanced to clear liquid diet, pt aware and will notify nursing. Bowel sounds hypoactive. visited pt briefly in afternoon. Pt uses call light appropriately.
[2023-01-02] MEDS: ATORVASTATIN CALCIUM 40 MG TABLET PO (21:06)
[2023-01-03] VITALS (9 sets, daily range): BP systolic 138–156; BP diastolic 97–106; PULSE 73–94; RESP 16; TEMP 36.6–37.1; O2SAT 95–97; BMI 21.8
[2023-01-03 06:31] LABS: Basophils Absolute Auto 0.02 K/uL (0.00-0.30); Basophils Percent Auto 0.2 % (0.0-3.0); Eosinophils Absolute Auto 0.05 K/uL (0.00-0.50); Eosinophils Percent Auto 0.6 % (0.0-7.0); Hematocrit 44.7 % (37.0-53.0); Hemoglobin* 14.8 gm/dL (13.5-17.5); Immature Granulocytes Abs Auto 0.02 K/uL (0.00-0.30); Immature Granulocytes Pct Auto 0.2 %; Lymphocytes Percent Auto 14.3 % (20-44); Mean Corpuscular HGB Conc 33 gm/dL (32-36); Mean Corpuscular Hemoglobin 28 pg (26-34); Mean Corpuscular Volume 86 fL (80-100); Neutrophils Percent Auto 76.7 % (42.0-72.0); Platelet Count* 197 K/uL (140-440); RDW Coefficient of Variation % 13.5 % (11.5-15.5); Red Blood Count 5.22 m/uL (4.30-5.90); White Blood Count* 9.09 K/uL (4.50-11.00)
[2023-01-03 06:32] LABS: Slide Review Reflex No
[2023-01-03 06:45] LABS: Chloride* 105 mmol/L (96-114); Potassium* 3.6 mmol/L (3.6-5.1); Sodium* 136 mmol/L (135-149)
[2023-01-03 06:48] LABS: Blood Urea Nitrogen* 22 mg/dL (7-30); Calcium* 8.8 mg/dL (8.4-10.6); Carbon Dioxide* 25 mmol/L (20-32); Creatinine* 1.1 mg/dL (0.5-1.5); Est. Creatinine Clearance* 36.74; Estimated Glomerular Filt Rate 70 ml/min; Glucose* 95 mg/dL (60-115)
--- NOTE | 2023-01-03 06:57 | PC.NURSE ---
19-07: pleasant and cooperative. States pain is tolerable. Tolerating clears, passing gas. No c/o urinary frequency or retention, however urine culture growing 2 organisms, updated. Steri strips to abd intact. VSS. Tele = NSR.
[2023-01-03] MEDS: CLOPIDOGREL 75 MG TABLET PO (09:09)
[2023-01-03] MEDS: TAMSULOSIN HCL 0.4 MG CAPSULE PO (09:09)
[2023-01-03] MEDS: METOPROLOL TARTRATE 25 MG TABLET 12.5 MG PO ×2 (09:09→21:14)
--- NOTE | 2023-01-03 10:23 | P.IMPN_ITS ---
Progress Note: A&P Assessment and plan (1) S/P laparotomy with lysis of adhesions: Problem details: Dr. Quinones, 01/01/2023. Postoperatively doing well Status: Acute (2) Urinary retention: Problem details: Straight cath p.r.n.. Initiate Flomax. Discussed natural history of what is likely BPH. Status: Acute (3) Coronary artery disease: Problem details: Four vessel CABG following cardiac arrest in March 2022. Asymptomatic heart disease since cardiac arrest Status: Acute (4) Stage 3 chronic kidney disease: Problem details: Stable Status: Acute (5) Small bowel obstruction: Problem details: Exploratory laparotomy with Dr. Quinones. Anticipate postoperative ileus Status: Acute (6) Antiplatelet or antithrombotic long-term use: Problem details: Resume antiplatelet therapy Status: Acute (7) UTI (urinary tract infection): Problem details: Proteus and Enterococcus in urine culture. both susceptible to ampicillin Status: Acute Plan Continue in hospital pending antegrade bowel function. Conservative management of BPH and urinary frequency. Time Spent With Patient Total time spent: Total time spent today is 25 minutes, 20 minutes in coordination of care and discussing with patient other providers ongoing evaluation management of BPH and bowel obstruction Subjective Date Seen: 01/03/23 Interval history: Postop day 2 exploratory laparotomy and lysis of adhesions. Doing well except for urinary retention and urinary urgency last night. Urinary frequency throughout the day, every 20-40 minutes. Post-void residual 200+ ml. H/O urinary retention x > 3 months post cardiac arrest and surgeries. Initially straight cath'd, but then Darby placed for about 3 months. Was on tamsulosin and finasteride for a few months and then these was discontinued. Clear liquid diet. This morning better able to empty his bladder. Still reports urinary frequency and nocturia. He attributes this to his IV fluids which he would like discontinued. Abdominal pain is better. He is anxious to go home. No fever. He is passing gas but has not yet had a bowel movement. Exam Narrative: Exam Narrative: He is alert and appears in no distress. Breathing is unlabored. Abdomen: Bowel sounds are decreased but present. Abdomen is soft with moderate mid abdominal tenderness in the area of his incision. There is moderate bruising in this area as well. Const: Vital Signs, click to edit/add: Vital Signs - 24 hr 01/02/23 11:15 01/02/23 15:00 01/02/23 15:00 Temperature 97.9 F Pulse Rate 71 Pulse Rate [Left A pical] Pulse Rate [Left P ulse Oximeter] 97 75 Respiratory Rate 16 16 Blood Pressure [Le ft Arm] 158/100 H Pulse Oximetry 97 Oxygen Delivery Me thod Room Air 01/02/23 15:00 01/02/23 19:00 01/02/23 22:23 Temperature 98.9 F 98.6 F Pulse Rate Pulse Rate [Left A pical] Pulse Rate [Left P ulse Oximeter] 75 86 Respiratory Rate 16 16 16 Blood Pressure [Le ft Arm] 153/91 H 144/98 H Pulse Oximetry 96 95 Oxygen Delivery Me thod Room Air Room Air 01/02/23 23:00 01/02/23 23:31 01/03/23 03:51 Temperature 98.7 F 98.6 F Pulse Rate 91 Pulse Rate [Left A pical] Pulse Rate [Left P ulse Oximeter] 94 92 Respiratory Rate 16 16 Blood Pressure [Le ft Arm] 156/94 H 156/100 H Pulse Oximetry 96 97 Oxygen Delivery Ia thod Room Air Room Air 01/03/23 07:00 01/03/23 07:17 01/03/23 09:46 Temperature 98.7 F Pulse Rate 88 Pulse Rate [Left A pical] 86 Pulse Rate [Left P ulse Oximeter] 86 84 Respiratory Rate 16 16 Blood Pressure [Le ft Arm] 142/101 H 147/97 H Pulse Oximetry 96 Oxygen Delivery Me thod Room Air Documenting provider has reviewed patient's vital signs: yes Labs Labs: Laboratory Results - last 24 hr 01/03/23 06:02 WBC 9.09 RBC 5.22 Hgb 14.8 Hct 44.7 MCV 86 MCH 28 MCHC 33 RDW Coeff of Johann 13.5 Plt Count 197 Neut % (Auto) 76.7 H Lymph % (Auto) 14.3 L [place] % (Auto) 8.0 Eos % (Auto) 0.6 Baso % (Auto) 0.2 Neut # (Auto) 7.00 Lymph # (Auto) 1.30 [place] # (Auto) 0.70 Eos # (Auto) 0.05 Baso # (Auto) 0.02 Abs Immat Gran (auto) 0.02 Imm/Tot Granulo (auto) 0.2 Sodium 136 Potassium 3.6 Chloride 105 Carbon Dioxide 25 BUN 22 Creatinine 1.1 Estimated Creat Clear 36.74 Estimated GFR 70 Glucose 95 Calcium 8.8
--- NOTE | 2023-01-03 10:37 | PC.NURSE ---
Tele indicates NSR. New order to discontinue maintenance IVF & IV to saline lock per Dr. Vee. Eval by Dr. Quinones. Pt continues on CL diet. UAL in room and hallway. Discussed pain medication with Darius and he states he does not need anything at this time. Steristrips to midline abdominal incision are well adhered, open to air with small amt of old dry blood noted. Continue plan of care.
--- NOTE | 2023-01-03 10:39 | PM.GSPN ---
Subjective Subjective Date Seen: 01/03/23 Interval history: The patient is doing well. He has been passing flatus and his diet was advanced yesterday to clears. He is tolerating clears without difficulty. Pain is only with movement. Exam Narrative: Exam Narrative: General: No acute distress CV: Regular rate Pulmonary: Breathing nonlabored on room air Abdomen: Soft, nondistended. Ecchymosis surrounding incision without erythema. Const: Vital Signs, click to edit/add: Vital Signs - 24 hr 01/02/23 11:15 01/02/23 15:00 01/02/23 15:00 Temperature 97.9 F Pulse Rate 71 Pulse Rate [Left A pical] Pulse Rate [Left P ulse Oximeter] 97 75 Respiratory Rate 16 16 Blood Pressure [Le ft Arm] 158/100 H Pulse Oximetry 97 [facility] 01/02/23 15:00 01/02/23 19:00 01/02/23 22:23 Temperature 98.9 F 98.6 F Pulse Rate Pulse Rate [Left A pical] Pulse Rate [Left P ulse Oximeter] 75 86 Respiratory Rate 16 16 16 Blood Pressure [Le ft Arm] 153/91 H 144/98 H Pulse Oximetry 96 95 [facility] Room Air 01/02/23 23:00 01/02/23 23:31 01/03/23 03:51 Temperature 98.7 F 98.6 F Pulse Rate 91 Pulse Rate [Left A pical] Pulse Rate [Left P ulse Oximeter] 94 92 Respiratory Rate 16 16 Blood Pressure [Le ft Arm] 156/94 H 156/100 H Pulse Oximetry 96 97 [facility] Air 01/03/23 07:00 01/03/23 07:17 01/03/23 09:46 Temperature 98.7 F Pulse Rate 88 Pulse Rate [Left A pical] 86 Pulse Rate [Left P ulse Oximeter] 86 84 Respiratory Rate 16 16 Blood Pressure [Le ft Arm] 142/101 H 147/97 H Pulse Oximetry 96 [facility] Labs/Imaging Labs Labs: White blood cell count within normal limits Electrolytes within normal Urine culture obtained on 12/31 shows Proteus and Enterococcus. Progress Note: A&P Assessment and plan (1) UTI (urinary tract infection): Problem details: Proteus and Enterococcus in urine culture. both susceptible to ampicillin Status: Acute (2) S/P laparotomy with lysis of adhesions: Problem details: Dr. Quinones, 01/01/2023. Postoperatively doing well Status: Acute (3) Coronary artery disease: Problem details: Four vessel CABG following cardiac arrest in March 2022. Asymptomatic heart disease since cardiac arrest Status: Acute (4) Stage 3 chronic kidney disease: Problem details: Stable Status: Acute (5) Urinary retention: Problem details: Straight cath p.r.n.. Initiate Flomax. Discussed natural history of what is likely BPH. Status: Acute (6) Antiplatelet or antithrombotic long-term use: Problem details: Resume antiplatelet therapy Status: Acute (7) Volvulus: Status: Acute Plan The patient is a 72-year-old male who is postop day 3 status post ex lap and lysis of adhesions for volvulus with bowel ischemia. He is now starting to have return of bowel function. Overall he is doing well. Once he has a bowel movement his diet can be advanced. We will plan on discharge either later today or tomorrow. Urine culture positive for UTI. Will start antibiotics for this. Continue to hold off on DVT prophylaxis given that patient is ambulating and is also on Plavix and aspirin.
--- NOTE | 2023-01-03 13:56 | PC.NURSE ---
Primary RN spoke with Dr. Yessica Quinones via phone @ [phone] this afternoon. Pt has a poor appetite nothing on the liquid diet appeals to me. UAL in hallway, passing flatus. Loretta supportive at bedside. New order to advance pt's diet to Full Liquids. Pt was cautioned by RN to advance his diet slowly and report any worsening pain or abdominal distention after eating. Pt verbalized understanding. Report will be given to oncoming shift RN.
--- NOTE | 2023-01-03 19:48 | PC.NURSE ---
[id number]: Pt A&O. Up at [place]. VSS w/ sats >90% on RA. Denies pain. Tolerating full liquid diet.
[2023-01-03] MEDS: ATORVASTATIN CALCIUM 40 MG TABLET PO (21:14)
[2023-01-03] MEDS: AMOXICILLIN 250 MG CAPSULE 500 MG PO (21:19)
[2023-01-04] VITALS (7 sets, daily range): BP systolic 120–133; BP diastolic 81–92; PULSE 78–101; RESP 16–18; TEMP 36.6–37.1; O2SAT 96–98
--- NOTE | 2023-01-04 07:31 | PC.NURSE ---
Alert and oriented x 4. Denies any abdominal pain this shift. Steri-strips to lap sites intact, small amount of dried blood to strips. Bowel sounds active x 4 quadrants, denies any nausea or vomiting. Tolerating full liquid diet. Independent with ambulation/up ad fabiola. ABX therapy initiated for positive UC. Denies any dysuria or frequency with urination.
[2023-01-04] MEDS: AMOXICILLIN 250 MG CAPSULE 500 MG PO ×3 (08:22→20:43)
[2023-01-04] MEDS: METOPROLOL TARTRATE 25 MG TABLET 12.5 MG PO ×2 (08:23→20:42)
[2023-01-04] MEDS: CLOPIDOGREL 75 MG TABLET PO (08:23)
[2023-01-04] MEDS: TAMSULOSIN HCL 0.4 MG CAPSULE PO (08:23)
--- NOTE | 2023-01-04 12:29 | PM.IMPN1 ---
Progress Note: A&P Assessment and plan (1) UTI (urinary tract infection): Problem details: Proteus and Enterococcus in urine culture. both susceptible to amoxicillin. Status: Acute (2) S/P laparotomy with lysis of adhesions: Problem details: Dr. Quinones, 01/01/2023. Postoperatively doing well. Slow return of antegrade bowel function. Status: Acute (3) Coronary artery disease: Problem details: Four vessel CABG following cardiac arrest in March 2022. Asymptomatic heart disease since cardiac arrest Status: Acute (4) Stage 3 chronic kidney disease: Problem details: Stable Status: Acute (5) Urinary retention: Problem details: Straight cath p.r.n.. Initiate Flomax. Discussed natural history of what is likely BPH. Status: Acute (6) Antiplatelet or antithrombotic long-term use: Problem details: Resume antiplatelet therapy Status: Acute Plan Continue in hospital pending antegrade bowel function. Likely discharge to home when bowels are working and tolerating regular diet Time Spent With Patient Total time spent: Total time spent today is 30 minutes, 20 minutes in coordination of care discussing with patient and other providers management of bowel obstruction, postop ileus Subjective Date Seen: 01/04/23 Interval history: Postop exploratory laparotomy and lysis of adhesions on December 31. Reports generally doing well. He is tolerating a full liquid diet. Urinary urgency and frequency is better by his report. H/O urinary retention x > 3 months post cardiac arrest and surgeries. Initially straight cath'd, but then Darby placed for about 3 months. Was on tamsulosin and finasteride for a few months and then these was discontinued. He has had no bowel movement yet. Is passing gas. He reports some belching but no nausea or bloating. Abdominal pain is better Exam Narrative: Exam Narrative: He is alert appears in no distress. Abdomen with diminished bowel sounds. Abdomen is soft. He has midline tenderness consistent with his postoperative status. Extremities no edema. Const: Vital Signs, click to edit/add: Vital Signs - 24 hr 01/03/23 15:24 01/03/23 15:34 01/03/23 19:00 Temperature 98.1 F 97.9 F Pulse Rate 73 Pulse Rate [Left A pical] Pulse Rate [Left P ulse Oximeter] 89 94 Respiratory Rate 16 16 Blood Pressure [Le ft Arm] 138/99 H 148/106 H Pulse Oximetry 95 97 Oxygen Delivery Me thod Room Air 01/03/23 23:00 01/04/23 03:00 01/04/23 07:14 Temperature 97.9 F Pulse Rate 91 87 Pulse Rate [Left A pical] Pulse Rate [Left P ulse Oximeter] 101 H Respiratory Rate 16 Blood Pressure [Le ft Arm] 120/90 H Pulse Oximetry 98 Oxygen Delivery Me thod Room Air 01/04/23 07:30 01/04/23 11:00 Temperature 97.8 F 98.4 F Pulse Rate Pulse Rate [Left A pical] 88 86 Pulse Rate [Left P ulse Oximeter] 88 86 Respiratory Rate 18 16 Blood Pressure [Le ft Arm] 123/92 H 126/81 Pulse Oximetry 96 97 Oxygen Delivery Me thod Room Air Room Air Documenting provider has reviewed patient's vital signs: yes
--- NOTE | 2023-01-04 12:39 | PC.NURSE ---
Pt's BP improved today, I was able to sleep last night. Afebrile and tolerated [place] diet. UAL in room and hallway. Loretta in to visit this am, supportive. Eval by Dr. Vee, pt denies pain. Tele indicates NSR. Discontinued pt's tele and pt's IV site per Dr. Vee's order. 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 Pt verbalized frustration over the fact he can't get real food and have a BM. Pt declined offer of shower from nsg staff, I just want to go home & do it. Patient continues to pass flatus, denies nausea, no BM since his exploratory laparoscopy done 12/[address] Quinones. Pt remains pleasant and cooperative with nsg interventions. Continue POC. Report will be provided to oncoming shift RN.
--- NOTE | 2023-01-04 12:49 | PM.GSPN ---
Subjective Subjective Date Seen: 01/04/23 Interval history: Darius is doing fine. He is somewhat bored. He is not having a bowel movement yet but is passing gas. Pain remains controlled. He is afebrile. He has had a small amount of belching. Continues to be ambulatory. Exam Narrative: Exam Narrative: General: No acute distress abdomen: Nondistended. Soft. Minimally tender. No erythema around the surgical site. periwound ecchymosis persists. Const: Vital Signs, click to edit/add: Vital Signs - 24 hr 01/03/23 15:24 01/03/23 15:34 01/03/23 19:00 Temperature 98.1 F 97.9 F Pulse Rate 73 Pulse Rate [Left A pical] Pulse Rate [Left P ulse Oximeter] 89 94 Respiratory Rate 16 16 Blood Pressure [Le ft Arm] 138/99 H 148/106 H Pulse Oximetry 95 97 Oxygen Delivery Me thod Room Air 01/03/23 23:00 01/04/23 03:00 01/04/23 07:14 Temperature 97.9 F Pulse Rate 91 87 Pulse Rate [Left A pical] Pulse Rate [Left P ulse Oximeter] 101 H Respiratory Rate 16 Blood Pressure [Le ft Arm] 120/90 H Pulse Oximetry 98 Oxygen Delivery Me thod Room Air 01/04/23 07:30 01/04/23 11:00 Temperature 97.8 F 98.4 F Pulse Rate Pulse Rate [Left A pical] 88 86 Pulse Rate [Left P ulse Oximeter] 88 86 Respiratory Rate 18 16 Blood Pressure [Le ft Arm] 123/92 H 126/81 Pulse Oximetry 96 97 Oxygen Delivery Me thod Room Air Room Air Progress Note: A&P Assessment and plan (1) Urinary retention: Problem details: Straight cath p.r.n.. Initiate Flomax. Discussed natural history of what is likely BPH. Status: Acute (2) S/P laparotomy with lysis of adhesions: Problem details: Dr. Quinones, 01/01/2023. Postoperatively doing well. Slow return of antegrade bowel function. Status: Acute (3) Stage 3 chronic kidney disease: Problem details: Stable Status: Acute (4) Antiplatelet or antithrombotic long-term use: Problem details: Resume antiplatelet therapy Status: Acute (5) Small bowel obstruction: Problem details: Exploratory laparotomy with Dr. Quinones. Anticipate postoperative ileus Status: Acute Plan The patient is a 72-year-old male who is postop day 4 status post exploratory laparotomy with lysis of adhesions for small-bowel obstruction with volvulus. He is doing well but we are waiting for full return of bowel function. He is anxious to discharge home. - continue full liquid diet until patient has a bowel movement. He can then have his diet advanced. - Holding DVT prophylaxis as patient is ambulatory and is on dual anti-platelet therapy. - On amoxicillin for UTI diagnosed when he was having urinary retention - continue IS.
[2023-01-04] MEDS: ATORVASTATIN CALCIUM 40 MG TABLET PO (20:42)
[2023-01-05 03:00] VITALS: RESP 16
--- NOTE | 2023-01-05 06:24 | PC.NURSE ---
Shift note: Pt has been sleeping well tonight. Pain level has been rated at 1. Alert and oriented and independent in room. Pt refused v/s check and prefers to sleep through the night. Respiratory rate was 16. Tolerated full liquid diet very well without any complications. Hourly rounds done.
[2023-01-05 07:00] VITALS: BP 110/71; PULSE 77; PULSE 86; RESP 16; TEMP 36.7; O2SAT 96
[2023-01-05] MEDS: METOPROLOL TARTRATE 25 MG TABLET 12.5 MG PO (08:32)
[2023-01-05] MEDS: AMOXICILLIN 250 MG CAPSULE 500 MG PO ×3 (08:32→21:57)
[2023-01-05] MEDS: TAMSULOSIN HCL 0.4 MG CAPSULE PO (08:32)
[2023-01-05] MEDS: CLOPIDOGREL 75 MG TABLET PO (08:32)
--- NOTE | 2023-01-05 10:16 | PM.GSPN ---
Subjective Subjective Date Seen: 01/05/23 Interval history: Darius feels well today. No nausea or vomiting. He is passing flatus. He does feel close to having a bowel movement but has not had a bowel movement yet. Exam Narrative: Exam Narrative: General: No acute distress CV: Regular rate and rhythm Respiratory: Clear bilaterally Abdomen: Soft. Nondistended. Nontender to palpation. Incision with ecchymosis and no erythema. Const: Vital Signs, click to edit/add: Vital Signs - 24 hr 01/04/23 11:00 01/04/23 15:00 01/04/23 15:00 Temperature 98.4 F 98.8 F Pulse Rate [Left A pical] 86 Pulse Rate [Left P ulse Oximeter] 86 78 78 Respiratory Rate 16 16 16 Blood Pressure [Le ft Arm] 126/81 133/81 Pulse Oximetry 97 96 Oxygen Delivery Me thod Room Air Room Air 01/04/23 19:00 01/04/23 23:00 01/05/23 03:00 Temperature 98.4 F Pulse Rate [Left A pical] Pulse Rate [Left P ulse Oximeter] 78 78 Respiratory Rate 16 16 16 Blood Pressure [Le ft Arm] Pulse Oximetry 97 Oxygen Delivery Me thod Room Air 01/05/23 07:00 01/05/23 07:00 Temperature 98.0 F Pulse Rate [Left A pical] 86 Pulse Rate [Left P ulse Oximeter] 77 Respiratory Rate 16 16 Blood Pressure [Le ft Arm] 110/71 Pulse Oximetry 96 Oxygen Delivery Me thod Room Air Progress Note: A&P Assessment and plan (1) UTI (urinary tract infection): Problem details: Proteus and Enterococcus in urine culture. both susceptible to amoxicillin. Status: Acute (2) S/P laparotomy with lysis of adhesions: Problem details: Dr. Quinones, 01/01/2023. Postoperatively doing well. Slow return of antegrade bowel function. Status: Acute (3) Stage 3 chronic kidney disease: Problem details: Stable Status: Acute (4) Small bowel obstruction: Problem details: Exploratory laparotomy with Dr. Quinones. Anticipate postoperative ileus Status: Acute (5) Antiplatelet or antithrombotic long-term use: Problem details: Resume antiplatelet therapy Status: Acute Plan Darius is a 72-year-old male who is postop day 5 status post ex lap and lysis of adhesions. Still waiting for full return of bowel function, however he has excellent bowel sounds and has been nondistended on a full liquid diet for several days. I think it is reasonable to advance his diet today. May be able to discharge later today. We talked about recovery as well as upcoming [place] This will be almost at 3 weeks postop. We discussed risk of blood clots with travel and recent surgery and lifting restrictions. He is on dual anti-platelet therapy, I encouraged him to ambulate on the flight and also he will wear compression socks. We will advance his diet today and I will follow up with him later.
[2023-01-05 11:00] VITALS: BP 106/72; PULSE 82; RESP 16; TEMP 36.7; O2SAT 97
--- NOTE | 2023-01-05 12:00 | PM.IMPN1 ---
Progress Note: A&P Assessment and plan (1) UTI (urinary tract infection): Problem details: Proteus and Enterococcus in urine culture. both susceptible to amoxicillin. Status: Acute (2) S/P laparotomy with lysis of adhesions: Problem details: Dr. Quinones, 01/01/2023. Postoperatively doing well. Slow return of antegrade bowel function. Status: Acute (3) Stage 3 chronic kidney disease: Problem details: Stable Status: Acute (4) Small bowel obstruction: Problem details: Exploratory laparotomy with Dr. Quinones. Anticipate postoperative ileus Status: Acute (5) Antiplatelet or antithrombotic long-term use: Problem details: Resume antiplatelet therapy Status: Acute (6) Coronary artery disease: Problem details: Four vessel CABG following cardiac arrest in March 2022. Asymptomatic heart disease since cardiac arrest Status: Acute Plan Continue in hospital pending antegrade bowel function. Subjective Date Seen: 01/05/23 Interval history: Postop exploratory laparotomy and lysis of adhesions on December 31. Reports generally doing well. He is tolerating a full liquid diet. Urinary urgency and frequency is better by his report. H/O urinary retention x > 3 months post cardiac arrest and surgeries. Initially straight cath'd, but then Darby placed for about 3 months. Was on tamsulosin and finasteride for a few months and then these was discontinued. He has had no bowel movement yet. Is passing gas. Exam Narrative: Exam Narrative: He is alert and appears in no distress. Observed ambulate in the chang. Breathing is unlabored. Abdomen: Bowel sounds active. Abdomen is soft with tenderness over his midline incision. Prominent bruising around the incision without erythema or drainage. Const: Vital Signs, click to edit/add: Vital Signs - 24 hr 01/04/23 15:00 01/04/23 15:00 01/04/23 19:00 Temperature 98.8 F 98.4 F Pulse Rate [Left A pical] Pulse Rate [Left P ulse Oximeter] 78 78 78 Respiratory Rate 16 16 16 Blood Pressure [Le ft Arm] 133/81 Pulse Oximetry 96 97 Oxygen Delivery Me thod Room Air Room Air 01/04/23 23:00 01/05/23 03:00 01/05/23 07:00 Temperature Pulse Rate [Left A pical] 86 Pulse Rate [Left P ulse Oximeter] 78 Respiratory Rate 16 16 16 Blood Pressure [Le ft Arm] Pulse Oximetry Oxygen Delivery Me thod 01/05/23 07:00 Temperature 98.0 F Pulse Rate [Left A pical] Pulse Rate [Left P ulse Oximeter] 77 Respiratory Rate 16 Blood Pressure [Le ft Arm] 110/71 Pulse Oximetry 96 Oxygen Delivery Me thod Room Air Documenting provider has reviewed patient's vital signs: yes
--- NOTE | 2023-01-05 14:37 | PC.NURSE ---
Shift note [id number]: patient up ambulating in hallway multiple times today. flatus present but no BM. pt reports feeling the urge but only gas is passed when going to [place]. denies abd. pn. abd bruised around surgical site. advanced to regular diet today for lunch and denies nausea with this. no new distention noted. continue oral ABX for UTI. urine clear/yellow. afebrile.
[2023-01-05 15:00] VITALS: BP 101/70; PULSE 80; RESP 16; TEMP 37; O2SAT 97
--- NOTE | 2023-01-05 17:15 | PM.DS1 ---
DS: Providers Provider Date Seen: 01/05/23 Date of admission: 12/31/22 15:45 Primary care physician: Not a Local Provider Admitting Clinician: Harjinder Barillas MD Attending Physician on discharge: Yessica Quinones MD DS: Summary Hospital Course Hospital Course: The patient is a 72-year-old male who presented to the emergency department with acute onset abdominal pain. Imaging revealed a bowel obstruction with concern for volvulus versus internal hernia. He was taken emergently to the operating room where who was found to have an internal hernia. The bowel appeared viable. Postoperatively he did well overall. He had urinary retention and was diagnosed with a UTi which was treated with amoxicillin. He had return of flatus but was still awaiting a bowel movement on post-op day 5. He had no pain, no nausea and was continuing to pass flatus and was anxious to discharge home. He was deemed safe for discharge home on POD5. Time Spent with Patient Time attestation: Total time spent providing and/or coordinating discharge services: Exam Narrative: Exam Narrative: General: NAD CV: regular Breathing non-labored on room air Abdomen: soft, non-tender. ecchymosis areound incision stable. No erythema. Const: Vital Signs, click to edit/add: Vital Signs - 24 hr 01/04/23 19:00 01/04/23 23:00 01/05/23 03:00 Temperature 98.4 F Pulse Rate [Left A pical] Pulse Rate [Left P ulse Oximeter] 78 78 Respiratory Rate 16 16 16 Blood Pressure [Le ft Arm] Pulse Oximetry 97 Oxygen Delivery Me thod Room Air 01/05/23 07:00 01/05/23 07:00 01/05/23 11:00 Temperature 98.0 F 98.0 F Pulse Rate [Left A pical] 86 Pulse Rate [Left P ulse Oximeter] 77 82 Respiratory Rate 16 16 16 Blood Pressure [Le ft Arm] 110/71 106/72 Pulse Oximetry 96 97 Oxygen Delivery Me thod Room Air Room Air 01/05/23 15:00 01/05/23 15:00 Temperature 98.6 F Pulse Rate [Left A pical] Pulse Rate [Left P ulse Oximeter] 80 80 Respiratory Rate 16 16 Blood Pressure [Le ft Arm] 101/70 Pulse Oximetry 97 Oxygen Delivery Me thod Room Air Discharge Plan Discharge Disposition: Home, Self-Care Date of Admission: 12/31/22 15:45 Attending Provider on Discharge: Nelson Vee Consulting Providers: Yessica Quinones Primary Care Provider: Provider,Not a Local Condition: Improved Anticipated Discharge Date/Time: 01/05/23 20:00 Discharge Medications: New tamsulosin 0.4 mg Capsule 0.4 mg PO DAILY 30 Days Qty: 30 0RF amoxicillin 250 mg Capsule 500 mg PO TID 8 Days Qty: 48 0RF Continued atorvastatin 40 mg tablet 40 mg PO DAILY clopidogrel 75 mg tablet 75 mg PO QAM nitroglycerin 0.4 mg tablet, sublingual sublingual metoprolol tartrate 25 mg tablet 12.5 mg PO BID Discharge Orders: Discharge Order (Routine); Ordered 01/05/23 Ordered By: Yessica Quinones Patient Education: Amoxicillin (By mouth), Tamsulosin (By mouth), Surgical Site Infections (GEN), Lysis of Abdominal Adhesions (GEN) Additional Instructions: Wound care: Your sutures are under the skin and will dissolve over time. Leave steri strips (white bandages) over incisions until they fall off (or remove after 7 days). OK to shower tomorrow but avoid bathing, soaking or swimming for 2 weeks. Pat the incisions dry. No need to wash or scrub the area. Apply ice to the area as needed for swelling. It is also OK to use a heating pad if this provides more comfort to you. Pain control: Take acetaminophen as directed on packaging for pain. Follow-up Follow up with Dr. Quinones next week at her [facility] Please call if you are experiencing severe pain, nausea, vomiting, difficulty urinating, fever or have not had bowel movement in 4 days after surgery. Activity Level: No strenuous activity Activity Detail: No lifting more than 20 lb for 4 weeks. Avoid activities that use your abdominal muscles such as table tennis, golf, outdoor biking, etc Discharge Diet: Regular Follow Up Appointments: Yessica Quinones MD [Staff Physician] - ([facility] - Tuesday. OK to overbook. Please call [phone] to make this appointment & state Dr. Quinones said it was OK to overbook for your January 11 appointment. ) Provider,Not a Local [Primary Care Provider] - Forms: [employer] Info Instructions
[2023-01-05] MEDS: polyethylene glycoL 3350 17 GM PACK PO (17:55)
[2023-01-05 19:00] VITALS: BP 125/91; PULSE 97; RESP 16; TEMP 36.4; O2SAT 97
--- NOTE | 2023-01-05 19:34 | PC.NURSE ---
end of shift note: miralax administered. No BM yet.
--- NOTE | 2023-01-05 22:05 | PC.NURSE ---
Discharge Note: Assisted primary nurse with discharge as pt becoming increasingly restless and rude to staff. Pt attempted to walk behind nurses station to find out what the hold up was relating to his discharge and needed to be told by staff to remain on the [place] of [place] until his paperwork was complete. Although pt did sit with screenplay writer to review discharge instructions, he interrupted several times saying get on with it, I've already covered this with the surgeon and I don't care, just give me the packet so I can leave. Pt dismissive of discharge instruction packet and slammed pen on bedside table after signing paperwork. Pt using profanities toward screenplay writer who informed him security would be called with any further aggressive behaviors. He discharged to home independently (and declined a wheelchair ride to the car) alongside his . Pt verbalized he did not have time to acknowledge discharge paperwork but did leave with the packet in his possession at 2155.
== END 2023-01-05 21:27 | disposition home or self-care (01) | DRG 335 ==
LOC: ED 12:08 → SS 12:45 → MEDSURG 15:43 → SS 16:51 → MEDSURG 16:51
PROVIDERS: Admitting Provider Internal Medicine; Emergency Provider Family Medicine; PCP Surgery; Visit Provider Surgery
PROC: 0DJ00ZZ Inspection of Upper Intestinal Tract, Open Approach (ICD-10-PCS; CPT 49000; principal; 2022-12-31 13:00)
DX: K46.0 Unspecified abdominal hernia with obstruction, without gangrene (principal); K56.2 Volvulus; K56.50 Intestinal adhesions [bands], unspecified as to partial versus complete obstruction; N39.0 Urinary tract infection, site not specified; R33.9 Retention of urine, unspecified; I12.9 Hypertensive chronic kidney disease with stage 1 through stage 4 chronic kidney disease, or unspecified chronic kidney disease; N18.30 Chronic kidney disease, stage 3 unspecified; I25.10 Atherosclerotic heart disease of native coronary artery without angina pectoris; Z95.1 Presence of aortocoronary bypass graft; Z79.02 Long term (current) use of antithrombotics/antiplatelets; Z86.74 Personal history of sudden cardiac arrest; B96.4 Proteus (mirabilis) (morganii) as the cause of diseases classified elsewhere; B95.2 Enterococcus as the cause of diseases classified elsewhere; N40.1 Benign prostatic hyperplasia with lower urinary tract symptoms; R35.0 Frequency of micturition; G89.18 Other acute postprocedural pain
CPT/HCPCS: 00840; 36415; 51702; 51798; 64488; 74177; 76942; 80048; 80076; 81001; 83605; 83690; 84153; 85025; 85651; 86140; 86850; 86900; 86901; 87086; 87186; 88305; 94761; 99100; 99140; 99284; 99285; A9270; C9290; J0330; J0665; J1100; J1170; J1885; J2270; J2405; J2543; J2704; J2710; J3010; J3475; J3490; J7030; J7120; Q9967